=== PATIENT | female | born 1970 | race Caucasian/White ===

== ENCOUNTER → 2017-07-24 | Outpatient (CLI) | payer BC ==
[2015-09-01 11:27] VITALS: BP 116/62
--- NOTE | 2017-07-24 15:05 | MG ---
HISTORY: SCREENING Comparison: 08/08/2015 FINDINGS: Bilateral CC and MLO projections of the right and left breast were obtained. Heterogeneously dense f ibroglandular tissue is seen to be present. There is a small developing asymmetry located at approxim ately the 12 o'clock position of the right breast anterior to mid depth, best demonstrated on CC view . Further evaluation with spot compression views is recommended. If the asymmetry persists, targeted sonography will be warranted. No significant architectural distortion, mass or clustered microcalcifi cations can be observed to suggest malignancy. No skin thickening or nipple retraction is appreciate d. No pathological lymphadenopathy can be identified. IMPRESSION: 1. Developing asymmetry within the right breast as above for which spot compression views possible ta rgeted sonography recommended. ACR CATEGORY 0 - assessment incomplete; additional imaging needed Spot compression views of the right breast recommended Diagnostic CAD was utilized and reviewed. * 0 (ZERO) - ASSESSMENT INCOMPLETE; ADDITIONAL IMAGING IS NEEDED. * 1/ (ONE) - NEGATIVE. * 2/II (TWO) - BENIGN FINDINGS. * 3/III (THREE) - PROBABLY BENIGN FINDING; SHORT INTERVAL FOLLOW-UP SUGGESTED. * 4/IV (FOUR) - SUSPICIOUS ABNORMALITY; BIOPSY SHOULD BE CONSIDERED. * 5/V - HIGHLY SUSPICIOUS OF MALIGNANCY; BIOPSY SHOULD BE PERFORMED. A NEGATIVE X-RAY REPORT SHOULD NOT DELAY BIOPSY IF A DOMINANT OR CLINICALLY SUSPICIOUS MASS IS PRESENT; 4 TO 8 PERCENT OF CANCERS ARE NOT IDENTIFIED BY X-RAY. A NEGA TIVE REPORT MAY REINFORCE THE CLINICAL IMPRESSION. ADENOSIS AND DENSE BREASTS MAY OBSCURE AN UNDERLY ING NEOPLASM. Reported By:
== END ==
LOC: RAD 10:15
PROVIDERS: ATTEND Specialist
DX: Z12.31 Encounter for screening mammogram for malignant neoplasm of breast (principal)
CPT/HCPCS: 77067

== ENCOUNTER → 2017-08-06 | Outpatient (CLI) | payer BC ==
[2015-09-01 11:27] VITALS: BP 116/62
--- NOTE | 2017-08-06 14:48 | MG ---
HISTORY: Patient callback right breast for developing asymmetry within the 12 o'clock position right breast. Diagnostic right breast mammogram with CAD. Comparison: Multiple mammograms dating back to August 08, 2015. FINDINGS: Spot compression CC and MLO projections of the right breast were obtained. Heterogeneously dense fib roglandular tissue is seen to be present. Spot compression views demonstrate persistence of a 8 mm f ocal asymmetry within the upper right breast approximately 12 o'clock position anterior to middle dep th 4.2 cm from the nipple. No associated mass, architectural distortion, or suspicious microcalcifica tion. No skin thickening or nipple retraction is appreciated. Targeted ultrasound of the right breast at the area of concern demonstrates a heterogeneous 4 x 5 x 5 mm mass 12 o'clock position approximately 2 cm from the nipple. There is internal color flow of the solid components. IMPRESSION: 5 mm suspicious right breast mass as above. ACR CATEGORY: 4c - suspicious abnormality, biopsy should be performed. Recommend ultrasound-guided biopsy of right breast suspicious mass. * 0 (ZERO) - ASSESSMENT INCOMPLETE; ADDITIONAL IMAGING IS NEEDED. * 1/1 (ONE) - NEGATIVE. * 2/II (TWO) - BENIGN FINDINGS. * 3/III (THREE) - PROBABLY BENIGN FINDING; SHORT INTERVAL FOLLOW-UP SUGGESTED. * 4/IV (FOUR) - SUSPICIOUS ABNORMALITY; BIOPSY SHOULD BE CONSIDERED. * 5/V - HIGHLY SUSPICIOUS OF MALIGNANCY; BIOPSY SHOULD BE PERFORMED. A NEGATIVE X-RAY REPORT SHOULD NOT DELAY BIOPSY IF A DOMINANT OR CLINICALLY SUSPICIOUS MASS IS PRESENT; 4 TO 8 PERCENT OF CANCERS ARE NOT IDENTIFIED BY X-RAY. A NEGA TIVE REPORT MAY REINFORCE THE CLINICAL IMPRESSION. ADENOSIS AND DENSE BREASTS MAY OBSCURE AN UNDERLY ING NEOPLASM. Reported By:
--- NOTE | 2017-08-06 14:52 | US ---
HISTORY: Patient callback right breast for developing asymmetry within the 12 o'clock position right breast. Diagnostic right breast mammogram with CAD. Comparison: Multiple mammograms dating back to August 08, 2015. FINDINGS: Spot compression CC and MLO projections of the right breast were obtained. Heterogeneously dense fibroglandular tissue is seen to be present. Spot compression views demonstrate persistence of an 8 mm focal asymmetry within the upper right breast approximately 12 o'clock position anterior to middle depth 4.2 cm from the nipple. No associated mass, architectural distortion, or suspicious microcalcification. No skin thickening or nipple retraction is appreciated. Targeted ultrasound of the right breast at the area of concern demonstrates a heterogeneous 4 x 5 x 5 mm mass 12 o'clock position approximately 2 cm from the nipple. There is internal color flow of the solid components. IMPRESSION: 5 mm suspicious right breast mass as above. ACR CATEGORY: 4c - suspicious abnormality, biopsy should be performed. Recommend ultrasound-guided biopsy of right breast suspicious mass. * 0 (ZERO) - ASSESSMENT INCOMPLETE; ADDITIONAL IMAGING IS NEEDED. * 1/1 (ONE) - NEGATIVE. * 2/II (TWO) - BENIGN FINDINGS. * 3/III (THREE) - PROBABLY BENIGN FINDING; SHORT INTERVAL FOLLOW-UP SUGGESTED. * 4/IV (FOUR) - SUSPICIOUS ABNORMALITY; BIOPSY SHOULD BE CONSIDERED. * 5/V - HIGHLY SUSPICIOUS OF MALIGNANCY; BIOPSY SHOULD BE PERFORMED. A NEGATIVE X-RAY REPORT SHOULD NOT DELAY BIOPSY IF A DOMINANT OR CLINICALLY SUSPICIOUS MASS IS PRESENT; 4 TO 8 PERCENT OF CANCERS ARE NOT IDENTIFIED BY X-RAY. A NEGATIVE REPORT MAY REINFORCE THE CLINICAL IMPRESSION. ADENOSIS AND DENSE BREASTS MAY OBSCURE AN UNDERLYING NEOPLASM. Reported By: Reported By:
== END ==
LOC: RAD 12:51
PROVIDERS: ATTEND Specialist
DX: R92.8 Other abnormal and inconclusive findings on diagnostic imaging of breast (principal)
CPT/HCPCS: 76642; 77065

== ENCOUNTER → 2017-08-14 | Outpatient (CLI) | payer BC ==
[2015-09-01 11:27] VITALS: BP 116/62
[~2017-08-14] MED LIST: XYLOCAINE 1 % (PLAIN) ONE
--- NOTE | 2017-08-15 14:21 | US ---
HISTORY: Patient is a 46-year-old female who presents with suspicious 5 mm nodule 12 o'clock positio n right breast 2 cm from the nipple. Study: Ultrasound-guided right breast biopsy Comparison: Mammogram/ultrasound right breast dated August 06, 2017 and multiple mammograms dating back t o August 08, 2015. Technique: Multiple grayscale images of the right breast were obtained. Findings: Again noted within the right breast is a focal lesion previously noted and amenable to ultrasound-jamie ded biopsy. Multiple images demonstrating a trocar device transversing the lesion are observed. Procedure: After the risks benefits and alternatives to the procedure were explained to the patient questions we re answered and she agreed to proceed. Under direct ultrasound guidance the skin entry position was selected and marked. A time-out was taken. 1% lidocaine without epinephrine was utilized to anesthe tize the skin and underlying soft tissues. Under direct ultrasound guidance the 13 gauge trocar harinder ce was advanced to the lesion without difficulty. 4 separate 14 gauge core samples were obtained wit hout difficulty. Under direct ultrasound guidance a clip was placed in the region of the lesion for correlation and followup. Diagnostic mammogram: ML and CC projections of the right breast were obtained demonstrating a breast clip to be in the rosa m on of ultrasound-guided biopsy. IMPRESSION: Successful ultrasound-guided breast biopsy. Reported By:
== END | disposition home or self-care (01) | DRG 601 ==
LOC: RAD 09:44
PROVIDERS: ATTEND Specialist
DX: N63.10 Unspecified lump in the right breast, unspecified quadrant (principal)
CPT/HCPCS: 19083; J2001